=== PATIENT | female | born 1995 | race Two or more races ===

== ENCOUNTER → 2025-01-20 | Outpatient (CLI) | payer MEDICAID, SELFPAY ==
--- NOTE | 2025-01-20 09:30 | XR_ITS ---
Examination: Esophagram standard Upright PA chest single view Upright soft tissue lateral neck single view 9 spot fluoroscopic films of the esophagus Fluoroscopy Date and time: January 20, 2025 0855 hours INDICATIONS: Difficulty swallowing 1 year TECHNIQUE AND FINDINGS: Upright PA chest normal heart size lungs are clear Soft tissue lateral neck no prevertebral soft tissue prominence Patient swallowed thin barium with primary peristaltic esophageal waves Moderate intermittent gastroesophageal reflux Large sliding esophageal hernia 60% stricture at the gastroesophageal junction IMPRESSION: Moderate intermittent gastroesophageal reflux 60% stricture the gastroesophageal junction which may relate to reflux esophagitis, clinical correlation advised Fluoroscopy 20 seconds 9 spot fluoroscopic films of the esophagus
== END | disposition home or self-care (01) ==
PROVIDERS: PCP Registered Nurse; Referring Provider Registered Nurse; Visit Provider Registered Nurse
DX: K21.9 Gastro-esophageal reflux disease without esophagitis (principal)
CPT/HCPCS: 74220; A4699

== ENCOUNTER 2025-01-27 08:30 | Outpatient (RCR) | payer MEDICAID, SELFPAY ==
[2025-01-25 14:53] LABS: HCG Qualitative,Urine Negative
--- NOTE | 2025-01-26 09:00 | XR_ITS ---
Examination: Nuclear medicine thyroid uptake and scan Date and time: January 26, 2025 1547 hours INDICATIONS: Palpable lumps in the left neck 4 weeks TECHNIQUE AND FINDINGS: Oral administration 285 uCi I-[id number] 6 hour uptake in 0.5% normal 6-24% 24 hour uptake 31.2% normal range 10-36% Suspicious for small cold nodule upper right thyroid lobe IMPRESSION: Normal thyroid uptake values Suspicious for small cold nodule upper right thyroid lobe, recommend correlation with thyroid sonography
== END 2025-02-01 23:59 | disposition home or self-care (01) ==
LOC: SNUC 08:30
PROVIDERS: PCP Registered Nurse; Referring Provider Registered Nurse; Visit Provider Registered Nurse
DX: E04.2 Nontoxic multinodular goiter (principal); Z32.00 Encounter for pregnancy test, result unknown
CPT/HCPCS: 78013; 81025; A9516